=== PATIENT | female | born 1995 | race Caucasian/White ===

== ENCOUNTER 2019-08-30 00:15 | Inpatient (IN) | payer BC, SELFPAY ==
[2019-08-29 23:05] VITALS: BMI 35.2
[2019-08-30] VITALS (43 sets, daily range): BP systolic 100–143; BP diastolic 53–97; PULSE 77–190; RESP 16–18; TEMP 36.3–37.2; O2SAT 82–100
[2019-08-30] MEDS: Lactated Ringers 500 ML 999 ML IV (00:35)
[2019-08-30 00:40] LABS: Bedside Glucose 96 mg/dL (70-110)
[2019-08-30] MEDS: Ondansetron 4 MG/2 ML Vial IV (00:42)
[2019-08-30] MEDS: Lactated Ringers 1,000 ML 200 ML IV (00:43)
[2019-08-30 00:44] LABS: Absolute Lymphocyte Count 1.58 X10^3/uL (0.83-4.51); Basophil# 0.03 X10^3/uL; Basophil% 0.2 % (0-1); Eosinophil# 0.02 X10^3/uL; Eosinophils% 0.1 % (0-5); Hematocrit 39.4 % (37-47); Hemoglobin 13.2 g/dL (12.0-15.0); Lymphocyte # 1.58 X10^3/ul (4.0); Lymphocyte % 11.7 % (19-41); Mean Corp Hgb Conc 33.5 g/dL (32-36); Mean Corpuscular Hgb 32.8 pg (27.0-32.0); Mean Corpuscular Volume 97.8 fL (81-99); Mean Platelet Vol. 9.7 fl (6.2-12.0); Monocyte# 0.77 X10^3/uL; Monocyte% 5.7 % (0-10); NRBC Flagged by Analyzer 0 % (0-5); Neutrophil # 11.02 X10^3/uL (2.7-7.7); Neutrophil % 81.6 % (47-70); Platelet Count 203 K/mm3 (150-450); RBC Distribution Width CV 14.1 % (11.6-14.6); RBC Distribution Width SD 49.2 fl (35.1-43.9); Red Blood Count 4.03 M/mm3 (4.2-5.4); White Blood Count 13.5 K/mm3 (4.4-11.0)
[2019-08-30] MEDS: fentaNYL-bupivacaine (epidural) 100 ML BAG EPIDURAL (01:42)
[2019-08-30 02:05] LABS: Probe Check PASS; Specimen Processing Control PASS
--- NOTE | 2019-08-30 02:21 | PCM.HP.OB ---
History Date of Admission: 08/29/19 Final CHRISTY: 09/09/19 Final CHRISTY Source: US <20 weeks Gestational age: 38 Weeks and 4 Days History of this : This is a 23 year-old, @ 38.4 WKS ADMITTED IN LABOR Allergies sulfamethoxazole [From Bactrim] Allergy (Verified 02/27/16 06:02) Hives trimethoprim [From Bactrim] Allergy (Verified 02/27/16 06:02) Hives Home Medications: Home Medications Famotidine [Pepcid] 20 mg PO PRN PRN 02/10/16 Vits [Prenatabs FA] 1 tablet PO DAILY 02/25/16 Smoking Status: Never smoker Alcohol: None History Past Pregnancies: Past Pregnancies Delivery Date Name GA/ Weeks Outcome Route Wt Sex Labor Length Anesthesia Delivery Location Provider FOB Expected Delivery Method: Spontaneous Vaginal Physical Exam Vitals: Vital Signs Temp Pulse BP Pulse Ox 97.9 F 82 122/78 H 93 08/30/19 02:13 08/30/19 02:11 08/30/19 02:11 08/30/19 02:07 General: Alert, Oriented x3 Abdomen: Soft, - - GRAVID Neurological: Cranial nerves II-XII grossly intact [employer]: Normal external genitalia Estimated gestational size: Appropriate for gestational size Presentation: Cephalic Cervix Dilation (cm): 9 - ON MY ARRIVAL Station: -1 Effacement (%): 100 Assessment/Plan This is a 23 year-old, @ 38. 4WKS IN ACTIVE LABOR ADMIT MONITOR FHR/TOCO ANTICIPATE GDMA1 PROTOCOL EPIDURAL FOR PAIN
[2019-08-30] MEDS: Oxytocin 30 units/NS 500 ml 30 UNITS/500 ML IV.SOLN 334 UNITS IV (02:31)
--- NOTE | 2019-08-30 02:40 | PCM.OPRPT ---
Vaginal Delivery Maternal Presentation: Active Labor PT ADMITTED FOR LABOR AT 3.5CM AND QUICKLY PROGRESSED TO COMPLETE Amniotic Membrane Rupture Type: Artificial Amniotic Fluid Description: Clear Final CHRISTY: 09/09/19 Final CHRISTY Source: US <20 weeks Gestational age: 38 Weeks and 4 Days Date of Procedure: 08/30/19 Pre-Operative Diagnosis: TERM GESTATAION, GDMA1 Post-Operative Diagnosis: SAME, LIVE MALE INFANT Surgery/ Procedure Performed: Spontaneous Vaginal Delivery Type of Anesthesia: Epidural - DID NOT HAVE ANY PAIN RELIEF SHE PROGRESSED TOO QUICKLY Description of Procedure: PT WITH PRECIPTIOUS DELIVERY- FIRST CHECKED AT 2CM 11:05PM (IRREGULAR CTX) AND WAS MONITORED- PROGRESSED TO 3.5CM AND AT THAT TIME WAS ADMITTED FOR LABOR - PT WAS THEN COMPLETE AND DELIVERED BY 2:28AM. OF LIVE MALE INFANT BORN WITHOUT COMPLICATION. HEAD DELIVERED FOLLOWED BY ANTERIOR SHOULDER WITH GENTLE DOWNWARD TRACTION AND SPONTANEOUS DELIVERY OF INFANT BODY. INFANT WAS VIGOROUS AND PLACED ON MOTHERS CHEST, DELAYED CORD CLAMPING PERFORMED X 60SEC. 1ST DEGREE VAGINAL LACERATION- GOOD HEMOSTASIS NO REPAIR NEEDED. PLACENTA DELIVERED WITHOUT DIFFICULTY. Presentation: Vertex Placental Delivery Description: Spontaneous Placenta Disposition: [facility] Cord Vessel Description: 3 Vessels Cord Entanglement: None Estimated Blood Loss: 150 Infant A gender: Male (1 minute): 9 (5 minute): 9 Episiotomy Description: None Laceration: Vaginal Extension/lac - NO REPAIR NEEDED, 1st degree Medications given after delivery: IV Pitocin Complications: None
[2019-08-30] MEDS: Ibuprofen 600 MG Tablet PO ×2 (03:04→15:25)
[2019-08-30 05:01] LABS: Bedside Glucose 112 mg/dL (70-110)
[2019-08-30] MEDS: oxyCODONE 5 MG Tablet PO ×2 (07:52→17:14)
[2019-08-31] VITALS (8 sets, daily range): BP systolic 101–126; BP diastolic 59–72; PULSE 78–105; RESP 16; TEMP 36.6–37.1; O2SAT 99
[2019-08-31 08:36] LABS: Bedside Glucose 71 mg/dL (70-110)
--- NOTE | 2019-08-31 08:50 | PCM.PN.OB ---
Subjective: Doing well per patient and nursing staff. Ambulating and taking PO without difficulty. Voiding and passing flatus. . Pain controlled. Lochia normal. Planning D/C home today. - Physical Exam Vitals/I&O's: Vital Signs Temp Pulse Resp BP Pulse Ox 98.8 F 88 16 112/72 99 08/31/19 08:26 08/31/19 08:27 08/31/19 01:05 08/31/19 08:27 08/31/19 08:27 Oxygen Delivery Method Room Air Weight: 192 lb 14.472 oz Body Mass Index (BMI) 35.2 Intake and Output for Last 24 Hours 08/29/19 08/30/19 08/31/19 23:59 23:59 23:59 Intake Total 1465 / 1465 Balance 1465 / 1465 General: Alert, Oriented x3, Cooperative HEENT: Atraumatic, Normocephalic Neck: Trachea Midline Lungs: Clear to auscultation, Normal air movement, No rhonchi, No wheeze Cardiovascular: Regular rate, Regular Rhythm, No murmurs Abdomen: Bowel Sounds Present, Soft - fundus firm 2 below U Extremities: No edema - Vidya's negative Psych/Mental Status: Normal Affect, Appropriate Laboratory Results 08/31/19 08:22: POC Glucose 71 Current Medications Acetaminophen (Tylenol) 1,000 mg PO Q8H PRN PRN PRN Reason: Pain Score 1-3/10 Bisacodyl (Dulcolax) 10 mg RECTAL UD PRN PRN Reason: If no BM Dibucaine (Dibucaine) 1 applic TOPICAL TID PRN PRN; Protocol PRN Reason: Discomfort Hydrocortisone (Hytone) 1 applic TOPICAL TID PRN PRN; Protocol PRN Reason: Discomfort Ibuprofen (Motrin) 600 mg PO Q6H PRN PRN PRN Reason: Pain Score 1-3/10 Last Admin: 08/30/19 15:25 Dose: 600 mg Documented by: Methylergonovine Maleate (Methergine) 0.2 mg IM X1 PRN PRN Reason: Excess bleeding/uterine atony Ondansetron HCl (Zofran) 4 mg IV Q4H PRN PRN PRN Reason: Nausea Oxycodone HCl (Oxyir) 5 - 10 mg PO Q4H PRN PRN PRN Reason: Pain Score 4-10/10 Last Admin: 08/30/19 17:14 Dose: 10 mg Documented by: Senna/Docusate Sodium (Senokot-S, Hortensia-Colace) 1 - 2 tablet PO DAILY PRN PRN PRN Reason: Constipation Simethicone (Mylicon) 80 mg PO PCHS PRN PRN Reason: Indigestion/Stomach pain Last Admin: 08/30/19 12:26 Dose: 80 mg Documented by: Sodium Chloride () 5 - 15 ml IV UD PRN PRN Reason: SALINE FLUSH Medical Necessity - Tobacco Use Smoking Status: Never smoker Assessment/Plan A:PPD #1 P: 1) Routine instructions and 2) Pain management 3) Follow up in 2 weeks and 6 weeks 4) Discharge home
--- NOTE | 2019-08-31 09:01 | DCINST_ITS ---
Discharge Diet: No Restrictions Discharge Activity: Return to Normal Activity, May not drive while taking narcotic pain medications., May Shower May resume sexual activity in: 4-6 weeks Weight Bearing Status: Full weight bearing Additional Activity Instructions:: Nothing in the vagina for 4-6 weeks. You may return to work/school in 6 weeks. Call your doctor if your incision/area has: Continuous Slow Oozing, Sudden Increased Bleeding, Increased Pain/ Swelling, Increased Redness, Foul Smelling Discharge Call your doctor if you observe: Fever of 101 or Higher, Inability to urinate, Inability to have a bowel movement, Using more than one pad per hour, Shortness of breath, Chest pain, Prolonged hiccoughing, Increased palpitations (irregular heartbeat), Calf discomfort, Uncontrolled pain Additional Instructions: If you experience any of the following, contact your healthcare provider. * Bleeding that soaks a pad every hour for 2 hours * Fever 100.4 or higher * Unrelieved incision or abdominal pain * Swelling, redness, discharge or bleeding from your incision or episiotomy site * Your incision begins to separate * Problems urinating (including inability to urinate or burning while urinating). * Visual changes * Severe headache * Flu-like symptoms * Pain or redness in one of both of your breasts * Pain, warmth, tenderness or swelling in your legs, especially the calf area * Frequent nausea and vomiting * Symptoms of depression or anxiety If you experience any of the following, call 911 or go to the nearest Emergency Room. * Chest pain * Problems breathing * Seizure activity * Partial or complete paralysis of a body part, slurred speech, weakness or drooping of the face, or a sudden inability to walk or hold your balance Allergies/Adverse Reactions: Allergies sulfamethoxazole [From Bactrim] Allergy (Verified 02/27/16 06:02) Hives trimethoprim [From Bactrim] Allergy (Verified 02/27/16 06:02) Hives Medications to take at Discharge Vits [Prenatabs FA ] 1 tablet PO DAILY 02/25/16 Please Follow Up With: Susanne Avalos MD When: Call to make an appointment with your doctor in 2 weeks and 6 weeks. If you had elevated Blood Pressure or 4th degree laceration you will need to be seen in 2 weeks. Primary Care Physician: Care Physician,No Primary [Primary Care Provider] - Test Results: Test results from this visit will be discussed in further detail at your follow- up appointment, if applicable.
[2019-08-31] MEDS: Ibuprofen 600 MG Tablet PO (12:11)
== END 2019-08-31 16:00 | disposition home or self-care (01) | DRG 806 ==
LOC: WPOUT 00:17 → WP 00:17
PROVIDERS: Admitting Provider Obstetrics & Gynecology; Visit Provider Obstetrics & Gynecology
DX: O24.420 Gestational diabetes mellitus in childbirth, diet controlled (principal); O71.4 Obstetric high vaginal laceration alone; Z37.0 Single live birth; Z3A.38 38 weeks gestation of pregnancy
CPT/HCPCS: 59025; 59050; 82962; 85025; 86850; 86900; 86901; 87635; 99218; J7120; G0378; J2405; J3490; U0003